=== PATIENT | male | born 2000 | race African-American/Black ===

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

== ENCOUNTER 2020-01-13 21:53 | Emergency (ER) | payer OTHER ==
[2020-01-13 22:00] VITALS: BP 148/75; PULSE 66; RESP 18; TEMP 98.8
[2020-01-13] MEDS ORDERED: metroNIDAZOLE 500 MG TAB PO STA (22:00)
[2020-01-13] MEDS ORDERED: cefTRIAXone 250 MG VIAL IM STA (22:01)
--- NOTE | 2020-01-13 22:03 | ED ---
Male Urogenital HPI - General Chief complaint: Urogenital Stated complaint: Recheck Time Seen by Provider: 01/13/20 22:00 Source: patient Mode of arrival: ambulatory Limitations: no limitations - History of Present Illness Initial comments: 19yo male presenting for STD treatment/testing denies symptoms admits to exposure. Denies penile lesions, buring with urination or discharge. Girl he slept with positive for trichomonas.Patient denies additional concerns, denies fevers, or abdominal pain. - Related Data Previous Rx's Medication Instructions Recorded Azithromycin [Zithromax] 500 mg PO DAILY 1 Days #2 tab 01/13/20 Allergies Allergy/AdvReac Type Severity Reaction Status Date / Time No Known Allergies Allergy Verified 01/13/20 22:00 Review of Systems ROS Statement: Those systems with pertinent positive or pertinent negative responses have been documented in the HPI. ROS Other: All systems not noted in ROS Statement are negative. Past Medical History Past Medical History: No Reported History History of Any Multi-Drug Resistant Organisms: None Reported Past Surgical History: No Surgical Hx Reported Past Psychological History: No Psychological Hx Reported Smoking Status: Never smoker Past Alcohol Use History: None Reported Past Drug Use History: None Reported General Exam - General Exam Comments Initial Comments: General: The patient is awake and alert, in no distress, and does not appear acutely ill. Eye: Pupils are equal, round and reactive to light, extra-ocular movements are intact. No nystagmus. There is normal conjunctiva bilaterally. No signs of icterus. Neurological: A&O x 3. CN II-XII intact grossly, There are no obvious motor or sensory deficits. Coordination appears grossly intact. Speech is normal. Skin: Skin is warm and dry and no rashes or lesions are noted. Psychiatric: Cooperative, appropriate mood & affect, normal judgment. Limitations: no limitations Course Vital Signs 01/13/20 21:57 Temperature 98.8 F Pulse Rate 66 Respiratory 18 Rate Blood Pressure 148/75 O2 Sat by Pulse 100 Oximetry Medical Decision Making - Medical Decision Making UA/ STI testing pending. + exposure. Treated for STI. patient has no complaints. Discharged appearing well. Disposition Clinical Impression: Concern about STD in male without diagnosis Disposition: HOME SELF-CARE Condition: Good Instructions (If sedation given, give patient instructions): Sexually Transmitted Diseases (ED), Safe Sex (ED), Trichomoniasis (ED) Additional Instructions: Please use medication as discussed. Please follow-up with family doctor in the next 2 days. Please return to emergency room if the symptoms increase or worsen or for any other concerns. Prescriptions: Azithromycin [Zithromax] 500 mg PO DAILY 1 Days #2 tab Is patient prescribed a controlled substance at d/c from ED?: No Referrals: None,Stated [Primary Care Provider] - 1-2 days Time of Disposition: 22:03
[2020-01-13 23:06] LABS: Appearance,Urine Clear (Clear); Bilirubin,Urine Negative (Negative); Blood,Urine Negative (Negative); Color,Urine Light Yellow; Glucose,Urine (UA) Negative (Negative); Ketones,Urine Negative (Negative); Leukocyte Esterase,Urine Negative (Negative); Nitrite,Urine Negative (Negative); Protein,Urine Negative (Negative); Specific Gravity,Urine 1.008 (1.001-1.035); Urobilinogen,Urine <2.0 mg/dL (<2.0)
== END 2020-01-13 23:00 | disposition home or self-care (01) ==
LOC: EC 21:53
DX: Z11.3 Encounter for screening for infections with a predominantly sexual mode of transmission (principal); Z20.2 Contact with and (suspected) exposure to infections with a predominantly sexual mode of transmission
CPT/HCPCS: 81003; 87491; 87591; 99283; 96372; J0696; 87661

== ENCOUNTER 2020-01-18 23:18 | Emergency (ER) | payer OTHER ==
[2020-01-18 23:45] VITALS: BP 112/65; PULSE 65; RESP 18; TEMP 98
--- NOTE | 2020-01-18 23:59 | ED ---
Recheck HPI - General Chief Complaint: Recheck/Abnormal Lab/Rx Stated Complaint: Recheck med refill Source: patient Mode of arrival: ambulatory Limitations: no limitations - History of Present Illness Initial Comments: Karina a 20-year-old male who was seen and evaluated in the ER last week after possible exposure to sexual partner who had Trichomonas. Patient reports at that time he was tested and requested oral antibiotics. They were E scribe to his pharmacy however his pharmacy no lower takes his insurance therefore he called here and we called his prescription into a new pharmacy however he was never notified by the pharmacy that they got the prescription so he returned tonight asking for the prescriptions. He is to deny any symptoms. - Related Data Previous Rx's Medication Instructions Recorded Azithromycin [Zithromax] 500 mg PO DAILY 1 Days #2 tab 01/13/20 Allergies Allergy/AdvReac Type Severity Reaction Status Date / Time No Known Allergies Allergy Verified 01/18/20 23:46 Review of Systems ROS Statement: Those systems with pertinent positive or pertinent negative responses have been documented in the HPI. ROS Other: All systems not noted in ROS Statement are negative. Past Medical History Past Medical History: No Reported History History of Any Multi-Drug Resistant Organisms: None Reported Past Surgical History: No Surgical Hx Reported Past Psychological History: No Psychological Hx Reported Smoking Status: Never smoker Past Alcohol Use History: None Reported Past Drug Use History: None Reported General Exam - General Exam Comments Initial Comments: Physical Exam GENERAL: Patient is well-developed and well-nourished. Patient is nontoxic and well-hydrated and is in no distress. HENT: Normocephalic, Atraumatic. EYES: PERRL, EOMI PULMONARY: Unlabored respirations. CARDIOVASCULAR: RRR Warm and well perfused extremities ABDOMEN: Non-distended SKIN: No rashes or bruising : Deferred NEUROLOGIC: Alert and oriented Normal speech Normal gait MUSCULOSKELETAL: Moving all extremities with no apparent injury PSYCHIATRIC: No SI/HI Limitations: no limitations Course Vital Signs 01/18/20 23:42 Temperature 98 F Pulse Rate 65 Respiratory 18 Rate Blood Pressure 112/65 O2 Sat by Pulse 98 Oximetry Medical Decision Making - Medical Decision Making patient was seen and evaluated history is obtained from the patient Review of medical records reveals that the patient was tested for gonorrhea, chlamydia and Trichomonas last week and was negative for all at this time is no indication for antibiotics patient will be discharged home Disposition Clinical Impression: Concern about STD in male without diagnosis Disposition: HOME SELF-CARE Condition: Stable Is patient prescribed a controlled substance at d/c from ED?: No Referrals: Jese Beckman MD [Primary Care Provider] - 1-2 days
== END 2020-01-19 00:36 | disposition home or self-care (01) ==
LOC: EC 23:18
DX: Z71.1 Person with feared health complaint in whom no diagnosis is made (principal)
CPT/HCPCS: 99281

== ENCOUNTER 2020-02-08 23:25 | Emergency (ER) | payer OTHER ==
[2020-02-08 23:39] VITALS: BP 113/62; PULSE 71; RESP 18; TEMP 98.4
[2020-02-09] MEDS ORDERED: metroNIDAZOLE 500 MG TAB PO STA (00:09)
--- NOTE | 2020-02-09 00:14 | ED ---
General Adult HPI - General Chief complaint: Recheck/Abnormal Lab/Rx Stated complaint: Wants STD testing Time Seen by Provider: 02/08/20 23:30 Source: patient, RN notes reviewed, old records reviewed Mode of arrival: ambulatory Limitations: no limitations - History of Present Illness Initial comments: 20-year-old male patient to the ED for concern of trichomonas infection. Patient reports that he was told by a sexual partner that she had Trichomonas a number weeks ago. [facility] where they reportedly tested his urine and treated him empirically with Rocephin and azithromycin. Patient denying any dysuria or lesion skin changes in his genital region. However is requesting to be tested and treated for Trichomonas. Systemic: Pt denies fatigue, fever/chills, rash. Pt denies weakness, night sweats, weight loss. Neuro: Pt denies headache, visual disturbances, syncope or pre-syncope. HEENT: Pt denies ocular discharge or irritation, otalgia, rhinorrhea, pharyngitis or notable lymphadenopathy. Cardiopulmonary: Pt denies chest pain, SOB, heart palpitations, dyspnea on exertion. Abdominal/GI: Pt denies abdominal pain, n/v/d. : Pt denies dysuria, burning w/ urination, frequency/urgency. Denies new onset urinary or bowel incontinence. MSK: Pt denies myalgia, loss of strength or function in extremities. Neuro: Pt denies new onset weakness, paresthesias. - Related Data Previous Rx's Medication Instructions Recorded Azithromycin [Zithromax] 500 mg PO DAILY 1 Days #2 tab 01/13/20 Allergies Allergy/AdvReac Type Severity Reaction Status Date / Time No Known Allergies Allergy Verified 02/08/20 23:39 Review of Systems ROS Statement: Those systems with pertinent positive or pertinent negative responses have been documented in the HPI. ROS Other: All systems not noted in ROS Statement are negative. Past Medical History Past Medical History: No Reported History History of Any Multi-Drug Resistant Organisms: None Reported Past Surgical History: No Surgical Hx Reported Past Psychological History: No Psychological Hx Reported Smoking Status: Never smoker Past Alcohol Use History: Occasional Past Drug Use History: None Reported General Exam - General Exam Comments Initial Comments: Constitutional: NAD, AOX3, Pt has pleasant affect. HEENT: NC/AT, trachea midline, neck supple, no lymphadenopathy. External ears appear normal, without discharge. Mucous membranes moist. EOM intact. There is no scleral icterus. No pallor noted. Cardiopulmonary: RRR, no murmurs, rubs or gallops, no JVD noted. Lungs CTAB in anterior and posterior rogers. No peripheral edema. Abdominal exam: Abdomen soft and non-distended. Neuro: CN II-XII grossly intact. No nuchal rigidity. MSK: Full active ROM in upper and lower extremities, 5/5 stregnth. Limitations: no limitations Course Vital Signs 02/08/20 23:35 Temperature 98.4 F Pulse Rate 71 Respiratory 18 Rate Blood Pressure 113/62 O2 Sat by Pulse 97 Oximetry Medical Decision Making - Medical Decision Making 20-year-old male patient to ED requesting evaluation for Trichomonas. Patient's however is declining a swab or an exam. I offered to treat patient empirically and he'll prefer that. Patient's urine was also tested. Patient will be treated with 2 g of Flagyl once. Last avoid alcohol. Follow-up with primary care provider and return for any worsening symptoms. Case discussed with Dr. Mc. Disposition Clinical Impression: Concern about STD in male without diagnosis Disposition: HOME SELF-CARE Condition: Stable Instructions (If sedation given, give patient instructions): Trichomoniasis (ED), Safe Sex (ED) Additional Instructions: Follow up with PCP tomorrow. Avoid alcohol, sex for one week. Return to ED with any worsening symptoms. Is patient prescribed a controlled substance at d/c from ED?: No Referrals: Jese Beckman MD [Primary Care Provider] - 1-2 days
[2020-02-09 00:35] LABS: Appearance,Urine Clear (Clear); Bilirubin,Urine Negative (Negative); Blood,Urine Negative (Negative); Color,Urine Light Yellow; Glucose,Urine (UA) Negative (Negative); Ketones,Urine Negative (Negative); Leukocyte Esterase,Urine Negative (Negative); Nitrite,Urine Negative (Negative); PH, Urine 6.5 (5.0-8.0); Protein,Urine Negative (Negative); Specific Gravity,Urine 1.019 (1.001-1.035); Urobilinogen,Urine <2.0 mg/dL (<2.0)
[2020-02-10 13:51] LABS: C. trachomatis,PCR Negative (Neg,Equiv); Chlamydia trachomatis Source Urine; N. gonorrhoeae,PCR Negative (Neg,Equiv); Neisseria Source Urine
== END 2020-02-09 00:56 | disposition home or self-care (01) ==
LOC: EC 23:25
DX: Z20.2 Contact with and (suspected) exposure to infections with a predominantly sexual mode of transmission (principal); Z71.1 Person with feared health complaint in whom no diagnosis is made
CPT/HCPCS: 81003; 87491; 87591; 99284

== ENCOUNTER 2020-03-10 09:15 | Emergency (ER) | payer OTHER ==
[2020-03-10 09:20] VITALS: BP 137/78; PULSE 74; RESP 18; TEMP 98.3
--- NOTE | 2020-03-10 09:27 | ED ---
Male Urogenital HPI - General Chief complaint: Urogenital Stated complaint: STD test Time Seen by Provider: 03/10/20 09:21 Source: patient Mode of arrival: ambulatory Limitations: no limitations - History of Present Illness Initial comments: 20-year-old male presenting today for chief complaint of STI testing. pt requesting testing. denies symptoms. denies exposure. "just being safe" denies pain with urination and penile discharge or penile lesions. no additional complaints. upon arrival pt appears well nontoxic in not acute distress. - Related Data Previous Rx's Medication Instructions Recorded Azithromycin [Zithromax] 500 mg PO DAILY 1 Days #2 tab 01/13/20 Allergies Allergy/AdvReac Type Severity Reaction Status Date / Time No Known Allergies Allergy Verified 03/10/20 09:20 Review of Systems ROS Statement: Those systems with pertinent positive or pertinent negative responses have been documented in the HPI. ROS Other: All systems not noted in ROS Statement are negative. Past Medical History Past Medical History: No Reported History History of Any Multi-Drug Resistant Organisms: None Reported Past Surgical History: No Surgical Hx Reported Past Psychological History: No Psychological Hx Reported Smoking Status: Never smoker Past Alcohol Use History: Occasional Past Drug Use History: None Reported General Exam - General Exam Comments Initial Comments: General: The patient is awake and alert, in no distress Eye: Pupils are equal, round and reactive to light, extra-ocular movements are intact. No nystagmus. There is normal conjunctiva bilaterally. No signs of icterus. Musculoskeletal: Normal ROM, no tenderness. Strength 5/5. Sensation intact. Radial pulses equal bilaterally 2+. Neurological: A&O x 3. CN II-XII intact grossly, There are no obvious motor or sensory deficits. Coordination appears grossly intact. Speech is normal. Skin: Skin is warm and dry and no rashes or lesions are noted. Psychiatric: Cooperative, appropriate mood & affect, normal judgment. Limitations: no limitations Course Vital Signs 03/10/20 09:16 Temperature 98.3 F Pulse Rate 74 Respiratory 18 Rate Blood Pressure 137/78 O2 Sat by Pulse 100 Oximetry Medical Decision Making - Medical Decision Making 20yo male presenting for cc of sti testing. no symptoms. no concern for exposure. is sexually active. pt discharged.testing pending. refused penile swab as well as prophylactic treatment Disposition Clinical Impression: Concern about STD in male without diagnosis Disposition: HOME SELF-CARE Condition: Good Instructions (If sedation given, give patient instructions): Safe Sex (ED) Additional Instructions: Please use medication as discussed. Please follow-up with family doctor in the next 2 days. Please return to emergency room if the symptoms increase or worsen or for any other concerns. Is patient prescribed a controlled substance at d/c from ED?: No Referrals: Jese Beckman MD [Primary Care Provider] - 1-2 days Time of Disposition: 09:27
[2020-03-10 09:56] LABS: Appearance,Urine Clear (Clear); Bilirubin,Urine Negative (Negative); Blood,Urine Negative (Negative); Color,Urine Yellow; Glucose,Urine (UA) Negative (Negative); Ketones,Urine Negative (Negative); Leukocyte Esterase,Urine Negative (Negative); Nitrite,Urine Negative (Negative); Protein,Urine Trace (Negative); Specific Gravity,Urine 1.029 (1.001-1.035); Urobilinogen,Urine <2.0 mg/dL (<2.0)
[2020-03-11 14:58] LABS: C. trachomatis,PCR Negative (Neg,Equiv); Chlamydia trachomatis Source Urine; N. gonorrhoeae,PCR Negative (Neg,Equiv); Neisseria Source Urine
== END 2020-03-10 09:58 | disposition home or self-care (01) ==
LOC: EC 09:15
DX: Z11.3 Encounter for screening for infections with a predominantly sexual mode of transmission (principal)
CPT/HCPCS: 81003; 87491; 87591; 99283

== ENCOUNTER 2020-04-14 17:52 | Emergency (ER) | payer OTHER ==
--- NOTE | 2020-04-14 18:26 | ED ---
Male Urogenital HPI - General Chief complaint: Urogenital Stated complaint: STD test Time Seen by Provider: 04/14/20 18:16 Source: patient Mode of arrival: ambulatory Limitations: no limitations - History of Present Illness Initial comments: 20-year-old male presents emergency Department with a chief complaint of STD check. Patient does report possible exposure to an STD. does report unprotected sex and wants to get tested. She denies any increased urgency, frequency or dysuria. Denies any penile discharge, testicular swelling erythema or tendern ess. Denies any abdominal pain fever or chills. Denies any cutaneous lesions. MD Complaint: testicle pain - Related Data Previous Rx's Medication Instructions Recorded Azithromycin [Zithromax] 500 mg PO DAILY 1 Days #2 tab 01/13/20 Allergies Allergy/AdvReac Type Severity Reaction Status Date / Time No Known Allergies Allergy Verified 04/14/20 18:15 Review of Systems ROS Statement: Those systems with pertinent positive or pertinent negative responses have been documented in the HPI. ROS Other: All systems not noted in ROS Statement are negative. Past Medical History Past Medical History: No Reported History History of Any Multi-Drug Resistant Organisms: None Reported Past Surgical History: No Surgical Hx Reported Past Psychological History: No Psychological Hx Reported Smoking Status: Never smoker Past Alcohol Use History: Occasional Past Drug Use History: None Reported General Exam Limitations: no limitations General appearance: alert, in no apparent distress Head exam: Present: atraumatic, normocephalic, normal inspection Eye exam: Present: normal appearance, PERRL, EOMI Pupils: Present: normal accommodation ENT exam: Present: normal exam, normal oropharynx, mucous membranes moist Neck exam: Present: normal inspection, full ROM Respiratory exam: Present: normal lung sounds bilaterally. Absent: respiratory distress Cardiovascular Exam: Present: regular rate, normal rhythm, normal heart sounds GI/Abdominal exam: Present: soft. Absent: distended, tenderness Extremities exam: Present: normal inspection, full ROM, normal capillary refill Back exam: Present: normal inspection, full ROM. Absent: CVA tenderness (R), CVA tenderness (L) Neurological exam: Present: alert, oriented X3, normal gait Psychiatric exam: Present: normal affect, normal mood Skin exam: Present: warm, dry, intact, normal color Course Vital Signs 04/14/20 18:12 Temperature 97.8 F Pulse Rate 89 Respiratory 16 Rate Blood Pressure 119/70 O2 Sat by Pulse 99 Oximetry Medical Decision Making - Medical Decision Making 20-year-old male presents to emergency prompt chief complaint of STD testing. Physical examination is unremarkable. Patient declined a exam. He does report suspected STD exposure but denies any symptoms.UA unremarkable. Gonorrhea and chlamydia pending. Patient was advised to go to his local health department for any additional STD testing. Return parameters discussed with patient was understanding and agreeable. Case discussed with physician. Disposition Clinical Impression: Contact with and (suspected) exposure to infections with a predominantly sexual mode of transmission Disposition: HOME SELF-CARE Condition: Stable Instructions (If sedation given, give patient instructions): Sexually Transmitted Diseases (ED), Condom Use (ED), Safe Sex (ED) Additional Instructions: [facility] will be contacted regarding results of gonorrhea and chlamydia testing.go to the local health department to get additional STD testing. Is patient prescribed a controlled substance at d/c from ED?: No Referrals: Jese Beckman MD [Primary Care Provider] - 1-2 days Time of Disposition: 18:29
[2020-04-14 18:36] LABS: Appearance,Urine Clear (Clear); Bilirubin,Urine Negative (Negative); Blood,Urine Negative (Negative); Color,Urine Yellow; Glucose,Urine (UA) Negative (Negative); Ketones,Urine Negative (Negative); Leukocyte Esterase,Urine Negative (Negative); Nitrite,Urine Negative (Negative); Protein,Urine Negative (Negative); Specific Gravity,Urine 1.019 (1.001-1.035); Urobilinogen,Urine <2.0 mg/dL (<2.0)
[2020-04-14 19:30] VITALS: BP 135/70; PULSE 77; RESP 20; TEMP 98.3
[2020-04-15 15:58] LABS: C. trachomatis,PCR Negative (Neg,Equiv); Chlamydia trachomatis Source Urine; N. gonorrhoeae,PCR Negative (Neg,Equiv); Neisseria Source Urine
== END 2020-04-14 19:30 | disposition home or self-care (01) ==
LOC: EC 17:52
DX: Z20.2 Contact with and (suspected) exposure to infections with a predominantly sexual mode of transmission (principal)
CPT/HCPCS: 81003; 87491; 87591; 99284